=== PATIENT | male | born 2000 | race Hispanic/Latino ===

== ENCOUNTER 2025-01-09 12:28 | Inpatient (IN) | payer OTHER ==
[~2025-01-09] VITALS: Ht 180.3 cm; Wt 64.0 kg
[2025-01-09] MEDS ORDERED: propofoL 200 MG/20 ML VIAL IV ONE (13:00)
[2025-01-09] MEDS ORDERED: KETAMINE in NS 50 MG/5 ML SYR IV ONE (13:00)
[2025-01-09] MEDS ORDERED: HYDROCODONE/APAP 10/325 1 TAB PO ONE (14:45)
[2025-01-09] MEDS ORDERED: HYDROmorphone HCL 1 MG/ML SYR IV ONE (14:45)
[2025-01-09] MEDS ORDERED: OXYCODONE HCL 5 MG TAB PO PRN (15:00)
[2025-01-09] MEDS ORDERED: DEXTROSE 5% - LACTATED RINGERS 1,000 ML IV SCH (15:00)
[2025-01-09] MEDS ORDERED: ondansetron HCL 4 MG/2 ML VIAL IV PRN (15:00)
[2025-01-09] MEDS ORDERED: IBUPROFEN 800 MG TAB PO PRN (15:00)
[2025-01-09] MEDS ORDERED: PROCHLORPERAZINE EDISYLATE 10 MG/2 ML VIAL IV PRN (15:00)
[2025-01-09] MEDS ORDERED: ACETAMINOPHEN 500 MG TAB PO PRN (15:00)
[2025-01-09] MEDS ORDERED: HYDROmorphone HCL 1 MG/ML SYR IV PRN (15:00)
--- NOTE | 2025-01-09 15:33 | NUR ---
PATIENT ARRIVED TO THE UNIT VIA STRETCHER. REPORT RECEIVED RFOM ED RN. SECOND NURSE SKIN CHECK COMPLETED. PATIENT TRNASFERED SELF BY SCOOTING FROM STRETCHER TO UNIT BED. VSS. PATIENT REPORTS PAIN PRN ADMINSTERED. CHEST TUBE IN PLACE AND FUNCTIONING WNL. NOTED INTERMINTENT BUBBLING, MADE AWARE BY ALARM INSTALLATION TECHNICIAN. PATIENT ORIENTED TO CALL LIGHT AND ROOM. IV SITE TO RIGHT AC PATENT. FAMLY AT BEDSIDE, CALL LIGHT WITHIN [facility].
[2025-01-09 15:34] VITALS: BP 133/74; BP 152/90
--- NOTE | 2025-01-09 15:38 | NUR ---
CALL TO DR. BALDWIN TO GIVE PATIENT STATUS UPDATE, THAT PATIENT HAS BUBBLES IN PLEURAVAC WITH INSPIRATION. DR. BALDWIN IS AWARE. SUCTION TO PLEURAVAC CONTAINER. PATIENT TO HAVE CHEST X-RAY IN THE MORNING AND DR. BALDWIN WILL SEE PATIENT TOMORROW.
--- NOTE | 2025-01-09 16:40 | NUR ---
PATIENT ON CPOX SPO2 AT 100% ON ROOM AIR. LUNG SOUNDS CTA IN UPPER LOBES, DIMINISHED IN RIGHT LOWER LOBE CLEAR IN LEFT LOWER LOBE. CHEST TUBE IN PLACE TO RIGHT LATERAL INTERCOSTAL SPACE. DRESSING IS CDI NO NOTED CREPITUS TO AREA. CHEST TUBE NOTED WITH INTERMINTENT BUBBLING MD IS AWARE. PATIENT C/O PAIN TO POSTERIOR RIGHT SHOULDER, NOTED SWELLING TO SCAPULA AREA ON RIGHT SIDE. NOTED DECREASED ROM TO RIGHT SHOULDER. PATIENT GIVEN ICE PACK AND PRN PAIN MEDICATIONS. BOWEL TONES ACITVE X 4 QUADRANTS. PULSES INTACT THORUGHOUT.NO NOTED EDEMA. CALL LIGHT WITHIN REACH, FAMILY AT BEDSIDE. NO FURTHER NEEDS.
--- NOTE | 2025-01-09 16:54 | NUR ---
Patient came to the floor at 1530. NELLY Joel in room doing new patient assessment.
--- NOTE | 2025-01-09 17:15 | NUR ---
In and spoke with Terrie and his quentin and brother. 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 He does not use any DME. He lives with his parents. He does not have insurance. We discussed [place] and his QUENTIN states she has this insurance and was able to set it up on line. She will help him apply. She also states pts employer said to give the info to him and he will submit. Pt lives with parents and does not have concern for finances or food. He drives. Family will assist pt as needed.
--- NOTE | 2025-01-09 17:45 | NUR ---
IN TO ROUND ON PATIENT. PATIENT EATING DINNER. DENIES ANY NEEDS AT THIS TIME. REPORTS PAIN HAS IMPROVED. CHEST TUBE REMAINS WNL, NO NOTED CREPITUS. INTERMINTENT BUBBLES CONTINUE. CALL LIGHT WITHIN REACH.
[2025-01-09 17:48] VITALS: BP 137/76
--- NOTE | 2025-01-09 18:07 | NUR ---
PATIENT RESTING IN BED. DENIES ANY NEEDS AT THIS TIME. CALL LIGHT WITHIN REACH.
[2025-01-09 18:08] VITALS: BP 137/76
--- NOTE | 2025-01-09 19:45 | NUR ---
Pt reports 10/10 pain, denies nausea. Given 1mg IV Dilaudid to good effect. Supportive family in room, call light in reach
[2025-01-09 19:52] VITALS: BP 138/80
--- NOTE | 2025-01-09 20:30 | NUR ---
Recieved report, assessed chest tube and lines at bedside report. Bubbling noted in tidal chamber, MD previously notified. Reports no difficulty breathing, though 10/10 pain of R back. Given IV Dilaudid to moderate effect as well as ice packs. Supportive family at bedside, call light in reach
--- NOTE | 2025-01-09 21:00 | NUR ---
CALL LIGHT ANSWERED, IV ALARMING. ICCLUSION NOTED, IV FLUIDS RESUMED WITH SITE WNL. FAMILY REPORTED pt HAD 275MLS EMESIS, pt DENIES NAUSEA FOLLOWING EMESIS AND DENIES NEED FOR NAUSEA MEDICATION WHEN ASKED. COOL WASH CLOTH PROVIDED. pt DENEIS ADDITIONAL NEEDS, CALL LIGHT IN REACH.
--- NOTE | 2025-01-09 21:48 | NUR ---
Notified by other RN that pt had emesis x1 and pain. Gave pt IV zofran. Offered Oxycodone for pain, but pt declines d/t nausea. Assisted pt to bathroom, contact guard assist. Pt in bed, call light in reach
--- NOTE | 2025-01-09 23:59 | NUR ---
Pt 5/10 pain. Given Motrin. Denies current nausea, SOB. Supportive family at bedside. Chest tube to water seal, sterile water, hemostats, occlusive dressing in room. Call light in reach
[2025-01-10] VITALS (9 sets, daily range): BP systolic 102–127; BP diastolic 58–73
--- NOTE | 2025-01-10 01:50 | NUR ---
TANGIBLE PERSONAL PROPERTY APPRAISER OBTAINED VITALS AND I&O. ICE WATER REFILLED. PT RQUESTING PAIN MEDICATION. RN NOTIFED. PT STATES NO FURTHER NEEDS AT THIS TIME. CALL LIGHT WITHIN REACH.
--- NOTE | 2025-01-10 02:32 | NUR ---
PT REPORTS SUDDEN 10/10 PAIN. GIVEN PRN TYLENOL, 5MG OXYCODONE, AND ICE TO GOOD EFFECT. DENIES NAUSEA. CHEST TUBE TO WATER SEAL PER MD ORDER. FAMILY AND SO AT BEDSIDE. CALL LIGHT IN REACH.
--- NOTE | 2025-01-10 04:18 | NUR ---
Pt sleeping, rise and fall of chest noted. Call light in reach
--- NOTE | 2025-01-10 04:27 | NUR ---
A&Ox4, Scottish speaking primarily but understands most Occitan. Chest tube initially to wall suction, placed on water seal overnight per MD orders. Some bubbling noted in tidal chamber, MD notified on day shift. L sided back and shoulder pain ranging from 5-10/10. Well managed with Oxycodone 5mg and other multimodals, and ice. Emesis x1 following Dilaudid IV. Well relieved with IV zofran. Ambulated with stand-by assist to bathroom Supportive family and significant other at bedside.
--- NOTE | 2025-01-10 06:30 | NUR ---
DR BALDWIN AT RN STATION AND ASKS THAT STAFF CALL HIS ROCKET TEST FIRE WORKER KALA TODAY ONCE HIS CLINIC OPENS TO ASSIST IN NEXT STEPS OF pt's WORKER'S COMP. DAYSHIFT NELLY KHANNA AND DAYSHIFT CRUSHER PLANT OPERATOR ASHLEY MADE AWARE AND TO COMPLETE TODAY.
--- NOTE | 2025-01-10 06:32 | NUR ---
Dr Urena at bedside. Plan to restart chest tube to -20 suction from water seal, and decrease IV fluids. Pt in minimal pain, declines pain medications. No other needs identified, call light in reach
--- NOTE | 2025-01-10 07:25 | CONS ---
[facility] [address], [place] [address] Signed DATE OF CONSULTATION: CHIEF COMPLAINT: Shortness of breath. HISTORY OF PRESENT ILLNESS: Latrice is a 24-year-old young man, who was working yesterday here in [place], [place]. He happens to live over in [place], [place], which is a little over an hour away. 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 He felt tightness and shortness of breath. His brother and another co-worker brought him to our local emergency room for evaluation. In the emergency room, he had a complete collapse of his right lung. ER doctor placed a small chest tube with resolution of the pneumothorax. He had been on suction most of the night. He went to water-seal a while ago, and then had his repeat a.m. chest x-ray. The lung was about half down. He said he could feel that change. We put him back to suction. We could see the air come out through the chest tube, and now it is very little in the way of air leak at this time. He said he felt better immediately. His mom and dad happened to be in the room. PAST MEDICAL HISTORY: None. PAST SURGICAL HISTORY: None. SOCIAL HISTORY: He does not smoke. He has an occasional drink. He is single, lives with his parents in [place], [place]. He does drive. FAMILY HISTORY: Dad has diabetes and obesity. REVIEW OF SYSTEMS: He had 10 systems reviewed and he said he is very healthy and no previous surgeries. ALLERGIES: None. MEDICATIONS: None. PHYSICAL EXAMINATION: VITAL SIGNS: Blood pressure is 102/59, pulse is 47, respiratory rate 16, temperature is 97.9. He is 100% on room air. GENERAL: Latrice is a 24-year-old young man, lying supine, semi-recumbent in his Electronically Signed By: RAJAN URENA MD 01/10/2525 PATIENT NAME: LATRICE DE LEON CONSULTATION DATE OF : 02 REPORT #: [id number] PHYSICIAN: RAJAN URENA MD PCP: NO PRIMARY CARE PHYSICIAN REPORT IS CONFIDENTIAL AND NOT TO BE RELEASED WITHOUT AUTHORIZATION [facility] [address], [place] [address] Signed hospital bed. He is in no acute distress. He has no increased work of breathing. He has no shortness of breath. He is able to talk in full sentences. He had decreased breath sounds on the right. HEART: Regular rate and rhythm, without murmur. ABDOMEN: Soft, flat, nontender. LABORATORY DATA: None. RADIOGRAPHIC STUDIES: The first chest x-ray shows the rather large right pneumothorax with complete collapse of his right lung. The followup chest x-ray after the small bore chest tube was placed, shows a small- to moderate-sized residual pneumothorax with the tip of the chest tube at the apex. The ER physician had pulled the chest tube back just a bit and the repeat chest x-ray showed a very tiny residual apical pneumothorax. This morning, he had been on water-seal, and we repeated the chest x-ray and he had a moderate pneumothorax. Therefore, we will resume the chest tube to suction. ASSESSMENT AND PLAN: Latrice is a 24-year-old young, thin, asthenically built gentleman, who has now developed a pneumothorax on the right. He has done well with his small bore chest tube. We are going to return it to a suction today and we will repeat a chest x-ray later and probably again in the morning. If he still has an air leak and is not able to resolve this pneumothorax he may need our thoracic surgeons at the [facility] to help him with respect to the above. I have reviewed all this with Latrice and his family. They understand even if this heals, he has a 50% chance to get a recurrent pneumothorax on the same side and 10% chance to get a pneumothorax on the opposite side. They have expressed understanding and agreed with the above plan. Rajan Urena MD [facility] /[id number] cc: Patient Chart Rajan Urena MD Electronically Signed By: RAJAN URENA MD 01/10/25 0725 PATIENT NAME: LATRICE DE LEON CONSULTATION DATE OF : 02 REPORT #: [id number] PHYSICIAN: RAJAN URENA MD PCP: NO PRIMARY CARE PHYSICIAN REPORT IS CONFIDENTIAL AND NOT TO BE RELEASED WITHOUT AUTHORIZATION [facility] [address] [place] [id number] Signed Copies: RAJAN URENA MD ~ Electronically Signed By: RAJAN URENA MD 01/10/25 0725 PATIENT NAME: LATRICE DE LEON CONSULTATION DATE OF : 02 REPORT #: [id number] PHYSICIAN: RAJAN URENA MD PCP: NO PRIMARY CARE PHYSICIAN REPORT IS CONFIDENTIAL AND NOT TO BE RELEASED WITHOUT AUTHORIZATION
--- NOTE | 2025-01-10 07:30 | NUR ---
REPORT RECEIVED RFOM ANESTHESIOLOGIST ASSISTANT CERTIFIED RN. PATIENT RESTING IN BED WITH EYES CLOSED. RESPIRATIONS EVEN AND UNLABORED. CALL LIGHT WITHIN REACH.
--- NOTE | 2025-01-10 07:50 | NUR ---
NISHANT NET DEVELOPER WITH [facility] FROM ED TO UNIT TO DISCUSS PATIENT CHEST TUBE AND PLACEMENT. MONOTYPE MECHANIC PLACED CALL TO MD REGUARDING NEW INFORMATION.
--- NOTE | 2025-01-10 08:10 | NUR ---
PATIENT RESTING IN BED AT THIS TIME. LUNG SOUNDS IN RIGHT LOBE DIMINISHED IN UPPER AND LOWER LOBE. LEFT LUNG SOUNDS CTA. CHEST TUBE TO WALL SUCKING AND -20 ON CHEST TUBE DEVICE. NO REPORTS OF PAIN AT THIS TIME. NOTED INTERMINTENT BULLING WHILE PATIENT IS BREATHING AND MOVING. NOTED SCANT AMOUNT OF DRAINAGE NOTED IN CHEST TUBE RED IN COLOR. BOWEL TONES ACTIVE X 4 QUADRANTS. AM MEDICATIONS GIVEN. IVF INRFUSING WITH NO ISSUES OR CONCERNS. DENIES ANY FURTHER NEEDS CALL LIGHT WITHIN REACH.
[2025-01-10] MEDS ORDERED: DOCUSATE SODIUM 100 MG CAP PO SCH (09:00)
[2025-01-10] MEDS ORDERED: POLYETHYLENE GLYCOL 3350 1 PACKET PO SCH (09:00)
--- NOTE | 2025-01-10 09:27 | NUR ---
DISCUSSED PATIENT MEETING INPT CRITERIA WITH DR. BALDWIN. DR. ABLDWIN/Lorna WEBB, RN, CHANGE TO INPT STATUS.
--- NOTE | 2025-01-10 09:45 | NUR ---
IN TO ROUND ON PATIENT. PATIENT DENIES ANY NEEDS AT THIS TIME. TURBINE MECHANIC STAFF IN ROOM TO OBTAIN VITALS.
--- NOTE | 2025-01-10 10:20 | NUR ---
ROUNDING ON PATIENT. RESTING IN BED. NO NEEDS AT THIS TIME. CALL LIGHT WITHIN REACH.
--- NOTE | 2025-01-10 10:27 | NUR ---
MED REC COMPLETE
--- NOTE | 2025-01-10 10:30 | NUR ---
UR CLINICAL REVIEW: TEOFILO, MEETS INPT FOR PNEUMOTHORAX. REQUIRING CHEST TUBE TO INTERMITTENT SUCTION. BETZY L&I, WORK COMP INPT 01/10/2025 @ 0933 ORDER MATCHES REG AUTH PENDING. PLAN TO DC TO HOME WHEN MEDICALLY STABLE. 01/12/2025
--- NOTE | 2025-01-10 11:47 | NUR ---
IN TO ROUND ON PATIENT. PATIENT RESTING IN BED WITH EYES CLOSED. RESPIRATIONS EVEN AND UNLABORED. PATIENT CHEST TUBE DRESSING REMAINS CDI. CHEST TUBE REMAINS TO WALL SUCTION AT THIS TIME. NO CREPITUS NOTED AT THIS TIME. NO NEW DRAINAGE FROM CHEST TUBE AT THIS TIME. FAMILY AT BEDSIDE CALL LIGHT WITHIN REACH.
--- NOTE | 2025-01-10 12:35 | NUR ---
ROUNDING ON PATIENT. DENIES ANY NEEDS AT THIS TIME. CALL LIGHT WITHIN [facility].
--- NOTE | 2025-01-10 12:43 | NUR ---
CLEMENCIA WITH DR. BALDWIN OFFICE ARRIVED TO NURSES STATION - GIVEN WORKMANS COMP PAPERWORK TO COMPLETE ON BEHALF OF PATIENT.
--- NOTE | 2025-01-10 13:45 | NUR ---
SENIOR CLINICAL RESEARCH ASSOCIATE STAFF WITH PATIENT OBTAINING VITALS AT THIS TIME.
--- NOTE | 2025-01-10 14:34 | NUR ---
PATIENT UP WITH RN AND STUDENT NURSE ASSIST TO AMBULATE IN ROOM. CHEST TUBE REMAINS TO WALL SUCTION AND WNL. NEW BAG OF IVF HUNG. PATIENT DENIES ANY SOB OR PAIN AT THIS TIME.
--- NOTE | 2025-01-10 16:27 | NUR ---
DISCUSSED WITH MD IN PERSON PATIENT'S MOST RECENT CHEST XRAY RESULTS. MD AWARE OF XRAY IMPRESSION INCLUDING "INTERVAL ENLARGEMENT OF THE RIGHT PNEUMOTHORAX". RN CLARIFIED POC INCLUDING NURSING CONCERNS FOR OVERNIGHT CARE AND WORSENING OF PNEUMO WITH DISCUSSION OF TUBE REPLACEMENT PER SMALL APPLIANCE ASSEMBLY SUPERVISOR. MD BALDWIN AWARE OF PT CURRENT XRAY RESULTS OF 1344. MD BALDWIN GAVE VERBAL ORDERS TO MAINTAIN CURRENT CHEST TUBE INCLUDING MAINTAINING CURRENT TUBE PLACED TO WALL SUCTION THROUGHOUT CLINICAL PATHOLOGIST. PENDING CXR AT 0600 ON 01/11/25.
--- NOTE | 2025-01-10 17:53 | NUR ---
PATIENT UP OUT OF BED WITH PEDIATRIC HOSPITALIST AMBULATED AROUND BED. TOLLERATED AMBULATION WELL. DENIES AND SOB. SPO2 WNL ON ROOM AIR. CHEST TUBE REMAINS IN PLACE TO WALL SUCTION. NO NOTED CREPITUS. SAME AMOUNT OF SCANT DRAINAGE NOTED TO CHEST TUBE. DRESSING CDI. PATIENT REPORTS PAIN 05/16. PRN'S AMDNISTERED. NO FURTHER NEEDS CALL LIGHT WITHIN REACH.
--- NOTE | 2025-01-10 18:27 | NUR ---
PATIENT RESTING IN BED WITH FAMILY AT BEDSIDE. DENIES ANY NEEDS AT THIS TIME. CALL LIGHT WITHIN REACH.
--- NOTE | 2025-01-10 19:35 | NUR ---
REPORT RECEIVED FROM DAY SHIFT RN. PT LYING IN BED ALERT AND ORIENTED. DENIES NEEDS. WHITE BOARD UPDATED. CALL LIGHT IN REACH.
--- NOTE | 2025-01-10 20:16 | NUR ---
EVENING ASSESSMENT COMPLETE. SCHEDULED MEDS ADMIN PER EMAR. PT DENIES PAIN OR NAUSEA. DENIES SOB. SpO2 100% ON RA. RIGHT SIDE CHEST TUBE TO WALL SUCTION. DRESSING INTACT. INTERMITTENT BUBBLING NOTED WITH INSPIRATION. NO CREPITUS NOTED. LUNGS DIMINISHED THROUGHOUT. PT UTILIZING IS. FAMILY TO SPEND THE NIGHT. PT DENIES QUESTIONS OR CONCERNS. CALL LIGHT IN REACH.
--- NOTE | 2025-01-10 21:45 | NUR ---
PT REPORTS RIGHT CHEST/SHOULDER PAIN 05/16. PRN FOR PAIN ADMIN PER EMAR. SpO2 100% ON RA. HR 50'S. MOM AT BEDSIDE. NO FURTHER NEEDS.
--- NOTE | 2025-01-10 23:25 | NUR ---
PT RESTING IN BED WITH EYES CLOSED. HOB ELEVATED. SpO2 98% ON RA. HR 50'S.
--- NOTE | 2025-01-11 00:55 | NUR ---
PT RESTING IN BED WITH EYES CLOSED. SpO2 99% ON RA. HR 50'S.
--- NOTE | 2025-01-11 02:12 | NUR ---
PT REPORTS RIGHT CHEST/SHOULDER PAIN 06/16. PRN FOR PAIN ADMIN PER EMAR. NO C/O SOB. RESPIRATIONS EVEN. ASSESSMENT UNCHANGED. SpO2 100% ON RA. HR 50'S. FAMILY IN ROOM. PT DENIES FURTHER NEEDS. CALL LIGHT IN REACH.
--- NOTE | 2025-01-11 03:02 | NUR ---
PT REPORTS CONTINUED RIGHT SIDE CHEST/BACK PAIN. ADDITIONAL PRN FOR PAIN ADMIN PER EMAR. ICE PACK PROVIDED FOR RIGHT BACK/SHOULDER AREA. HOB ELEVATED. SpO2 100% ON RA. HR 50'S. ASSESSMENT UNCHANGED. NO FURHTER NEEDS. CALL LIGHT IN REACH.
--- NOTE | 2025-01-11 04:17 | NUR ---
PT RESTING IN BED WITH EYES CLOSED. RESPIRATIONS EVEN. SpO2 98% ON RA. HR 50'S.
[2025-01-11 06:02] VITALS: BP 118/54
--- NOTE | 2025-01-11 06:05 | NUR ---
PT RESTING WITH EYES CLOSED. AWAKENS EASILY. VS AND I&O OBTAINED. PT DENIES PAIN AT THIS TIME. NO C/O SOB. CHEST TUBE UNCHANGED. CHEST XRAY COMPLETE. PARENTS RESTING IN ROOM. PT DENIES FURTHER NEEDS. CALL LIGHT IN REACH.
[2025-01-11 06:07] VITALS: BP 118/54
--- NOTE | 2025-01-11 07:30 | NUR ---
REPORT RECEIVED FROM MANUFACTURING TECHNOLOGIST RN. PATIENT RESTING IN BED. IV FLUIDS INCREASED PER MD ORDERS. NO NEEDS AT THIS TIME. CALL LIGHT WITHIN REACH.
--- NOTE | 2025-01-11 08:50 | NUR ---
PATIENT RESTING IN BED WITH FAMILY AT BEDSIDE. LUNGS SOUNDS TO LEFT LUNG DIM IN UPPER AND LOWER LOBES. CLEAR LUNG SOUNDS IN RIGHT LOBE. CPOX READING 99% ON RA. PATIENT REPORTS HIS PAIN IS MINIMIAL WHEN HE IS RESTING IN BED. REPORTS PAIN INCREASES WITH MOVEMENT. DENIES NEED FOR PAIN MEDICATIONS AT THIS TIME. CHEST TUBE REMAINS TO WALL SUCTION, DRESSING CDI. NO NOTED CREPITUS AT THIS TIME. NO NEW DRAINAGE NOTED FROM CHEST TUBE. NEW ICE PACK FOR LEFT POSTERIOR SHOULDER. NO FURTHER NEEDS CALL LIGHT WITHIN REACH.
--- NOTE | 2025-01-11 09:30 | NUR ---
ROUNDING ON PATIENT NO NEEDS AT THIS TIME. CALL LIGHT WITHIN REACH.
--- NOTE | 2025-01-11 10:30 | NUR ---
OFFICE ASSISTANT RECEPTIONIST STAFF IN ROOM WITH PATIENT OBTAINING VITALS AT THIS TIME.
[2025-01-11 10:37] VITALS: BP 114/63
--- NOTE | 2025-01-11 10:40 | NUR ---
PATIENT IS IN BED AT THIS TIME, RESTAURANT SUPERVISOR CHARTED VITALS AND OUTPUT. HE SAID HIS PAIN LEVEL IS A 1, CALL LIGHT WITH IN REACH AND NOTHING ELSE NEEDED AT THIS TIME.
[2025-01-11 10:53] VITALS: BP 114/63
--- NOTE | 2025-01-11 11:45 | NUR ---
STUDENT NURSE IN ROOM TO ROUND ON PATIENT. RESTING IN BED WITH EYES CLOSED, RESPIRATIONS EVEN AND ULABORED. NO NEEDS AT THIS TIME. CALL LIGHT WITHIN REACH.
--- NOTE | 2025-01-11 12:30 | NUR ---
PATIENT RESTING IN BED, IVF INFUSING WNL. IV SITE REMAINS WNL. DENIES ANY NEEDS AT THIS TIME CALL LIGHT WITHIN REACH.
--- NOTE | 2025-01-11 13:18 | NUR ---
IN TO ROUND ON PATIENT. LUNG SOUNDS VERY DIMINISHED IN RIGHT UPPER AND LOWER LOBES. CLEAR LUNG SOUNDS UPPER LEFT AND DIMINISHED IN LOWER LEFT LOBE. CPOX IN PLACE SPO2 99% ON RA AT THIS TIME. PATIENT DENIES ANY SOB OR CHEST PAIN. REPORTS DISCOMFORT TO POSTERIOR RIGHT SHOUDLER. REQUESTING ICE PACK. FRESH ICE PACK GIVEN. PATIENT DENIES PRN PAIN MEDICATIONS AT THIS TIME. NO NOTED CREPITUS, CHEST TUBE SITE REMAINS WNL. NO FURTHER NEEDS. CALL LIGHT WITHIN REACH.
--- NOTE | 2025-01-11 13:52 | NUR ---
PLAN TO TRANSFER TO ANOTHER, HIGHER LEVEL CARE FACILITY. NO CM NEEDS AT THIS TIME.
[2025-01-11 14:01] VITALS: BP 114/67
--- NOTE | 2025-01-11 14:05 | NUR ---
PATIENT IS IN BED AT THIS TIME, MOTHER IS IN THE ROOM. ABSEILING INSTRUCTOR CHARTED VITALS AND I&O'S, CALL LIGHT WITHIN REACH AND NOTHING ELSE NEEDED AT THIS TIME.
--- NOTE | 2025-01-11 15:22 | NUR ---
VISITED DURING SPIRITUAL CARE ROUNDS. PT APPEARED TO BE SLEEPING, VISITED PRIMARILY WITH VASCULAR SPECIALISTS IN ROOM WHO HAD QUESTIONS REGARDING PT CARE AND POSSIBLE TRANSFER. ASSURED VASCULAR SPECIALISTS THAT DR WOULD BE IN SOON POSSIBLE TO DISCUSS. PROVIDED SUPPORTIVE PRESENCE, HOSPITALITY, PRAYER. VASCULAR SPECIALISTS EXPRESSED GRATITUDE.
--- NOTE | 2025-01-11 15:40 | NUR ---
PATIENT RESTING IN BED AT THIS TIME. REPORTS PAIN IS TOLLERABLE AND DOES NOT WISH TO HAVE PAIN MEDICATIONS AT THIS TIME. LUNG SOUNDS DIMINISHED TO RIGHT UPPER AND LOWER LOBE. LEFT LOBE LUNG SOUNDS CTA. CHEST TUBE DRESSING REMAINS CDI, NO NOTED CREPITUS. CPOX READING 100% ON RA AT THIS TIME. IV SITE PATENT. NO FURTHER NEEDS CALL LIGHT WITHIN REACH.
--- NOTE | 2025-01-11 17:11 | NUR ---
REPORT CALLED AND GIVEN TO RECEIVEING NELLY LOPEZ RN AT ACCEPTING FACILITY.
[2025-01-11 17:35] VITALS: BP 133/80
--- NOTE | 2025-01-11 17:58 | NUR ---
PATIENT TRANSFERED VIA EMS TO [facility].
== END 2025-01-11 17:55 | disposition short-term general hospital (02) | DRG 201 ==
LOC: ED 12:28 → MS 12:32
PROVIDERS: ADMIT Colon & Rectal Surgery; ATTEND Colon & Rectal Surgery
PROC: 0W9930Z Drainage of Right Pleural Cavity with Drainage Device, Percutaneous Approach (ICD-10-PCS; principal; 2025-01-09)
DX: J93.9 Pneumothorax, unspecified (principal); X50.0XXA Overexertion from strenuous movement or load, initial encounter
CPT/HCPCS: 32551; 71045; 94760; 94762; 94799; 96375; 96376; 99152; 99153; 99285-25; A9270; G0378; J1171; J2405; J2704; J3490; J7121